=== PATIENT | male | born 1995 | race Caucasian/White ===

== ENCOUNTER 2018-04-17 22:32 | Inpatient (IN) | payer OTHER ==
[2018-04-17] MEDS: HYDROCODONE/APAP (5/325) TAB PO (23:45)
[2018-04-18] MEDS ORDERED: NACL 0.9% 3 ML SYG IV (02:00)
[2018-04-18] MEDS ORDERED: DOCUSATE SODIUM 100 MG CAP PO (02:00)
[2018-04-18] MEDS ORDERED: BISACODYL (EC) 5 MG TAB PO (02:00)
[2018-04-18] MEDS ORDERED: HYDROCODONE/APAP (5/325) TAB PO (02:00)
[2018-04-18 03:49] LABS: ADD MAN DIFF? NO
[2018-04-18 03:58] LABS: WHITE BLOOD COUNT 14.1 10^3/ul (4.8-10.8)
[2018-04-18 03:58] LABS: BASOPHIL # 0.1 10^3/ul (0.0-0.1); BASOPHILS % 0.6 % (0.0-2.0); EOSINOPHILS # 0.2 10^3/ul (0.0-0.5); EOSINOPHILS % 1.3 % (0.0-7.0); HEMATOCRIT 45.1 % (42.0-52.0); HEMOGLOBIN 15.7 g/dl (14.0-18.0); LYMPHOCYTES # 1.2 10^3/ul (0.8-2.9); LYMPHOCYTES % 8.5 % (15.0-51.0); MEAN CORPUSCULAR HEMOGLOBIN 31.2 pg (29.0-33.0); MEAN CORPUSCULAR HGB CONC 34.8 g/dl (32.0-37.0); MEAN CORPUSCULAR VOLUME 89.5 fl (82.0-101.0); MEAN PLATELET VOLUME 10.7 fl (7.4-10.4); MONOCYTE # 0.7 10^3/ul (0.3-0.9); MONOCYTES % 5.3 % (0.0-11.0); NEUTROPHIL # 11.7 10^3/ul (1.6-7.5); NEUTROPHILS % 83.2 % (39.0-77.0); PLATELET COUNT 219 10^3/UL (140-415); RED BLOOD COUNT 5.04 10^6/ul (4.70-6.10); RED CELL DISTRIBUTION WIDTH 12.2 % (11.5-14.5)
[2018-04-18 04:07] LABS: HEMOGLOBIN A1C 5.1 % (0-5.9)
[2018-04-18 04:16] LABS: ALANINE AMINOTRANSFERASE 62 IU/L (13-69); ALBUMIN 4.7 g/dl (3.3-4.9); ALBUMIN/GLOBULIN RATIO 1.56; ALKALINE PHOSPHATASE 54 IU/L (42-121); ANION GAP 15 (8-16); ASPARTATE AMINO TRANSFERASE 31 IU/L (15-46); BILIRUBIN,INDIRECT 0.2 mg/dl (0-1.1); BILIRUBIN,TOTAL 0.2 mg/dl (0.2-1.3); BLOOD UREA NITROGEN 9 mg/dl (7-20); CALCIUM 9.1 mg/dl (8.4-10.2); CARBON DIOXIDE 25 mmol/L (21-31); CHLORIDE 108 mmol/L (97-110); CREATININE 0.74 mg/dl (0.61-1.24); GLUCOSE 112 mg/dl (70-220); MAGNESIUM 2.3 mg/dl (1.7-2.5); POTASSIUM 4.3 mmol/L (3.5-5.1); SODIUM 144 mmol/L (135-144); TOTAL PROTEIN 7.7 g/dl (6.1-8.1)
[2018-04-18 04:17] LABS: INR 1.06; PROTIME 13.9 Sec (11.9-14.9); PT RATIO 1.1
[2018-04-18 04:18] LABS: PARTIAL THROMBOPLASTIN TIME 26.7 Sec (23.0-35.0)
[2018-04-18 04:57] LABS: THYROID STIMULATING HORMONE 0.927 MIU/L (0.465-4.680)
[2018-04-18] MEDS: HYDROCODONE/APAP (5/325) TAB PO ×2 (06:37→16:53)
[2018-04-18] MEDS: SOD CHLORIDE 0.9% 1,000 ML IV ×2 (06:37→19:26)
[2018-04-18] MEDS: HEPARIN 5,000 UNIT/0.5 ML VIAL SC ×3 (06:46→21:10)
[2018-04-19] MEDS: morphine 2 MG INJ IV ×2 (00:08→04:18)
[2018-04-19] MEDS: HEPARIN 5,000 UNIT/0.5 ML VIAL SC ×2 (05:58→07:34)
[2018-04-19] MEDS ORDERED: PROPOFOL 200 MG INJ (07:00)
[2018-04-19] MEDS: SOD CHLORIDE 0.9% 1,000 ML IV (07:14)
[2018-04-19] MEDS ORDERED: morphine SULFATE/PF (10 MG/10 ML) INJ (18:16)
[2018-04-19] MEDS ORDERED: METOCLOPRAMIDE 10 MG INJ (18:16)
[2018-04-19] MEDS ORDERED: MIDAZOLAM 1 MG/ML 2 ML INJ (18:16)
[2018-04-19] MEDS ORDERED: ROPIVACAINE 0.2% 20 ML VIAL (18:16)
[2018-04-19] MEDS ORDERED: BUPIVACAINE 0.75%/DEXT (SPINAL) 2 ML INJ (18:17)
[2018-04-19] MEDS ORDERED: FENTAnyl 50 MCG/ML VIAL (18:21)
[2018-04-19] MEDS ORDERED: KETOROLAC 30 MG INJ (18:53)
[2018-04-19] MEDS ORDERED: ONDANSETRON 4 MG INJ (18:53)
[2018-04-19] MEDS ORDERED: CEFAZOLIN 1 GM INJ (18:53)
[2018-04-19] MEDS: POLYMYXIN/BACITRACIN 1L IRRIG IRR (18:58)
[2018-04-19] MEDS ORDERED: HYDROmorphONE 1 MG/5 ML IV SYRINGE IV ×3 (19:30)
[2018-04-19] MEDS ORDERED: DIPHENHYDRAMINE 50 MG INJ IV (19:30)
[2018-04-19] MEDS ORDERED: MEPERIDINE 25 MG INJ IV (19:30)
[2018-04-19] MEDS ORDERED: LIDOCAINE 2% (SDV) 5 ML INJ (20:41)
[2018-04-19] MEDS: ONDANSETRON 4 MG INJ IV ×2 (22:11→23:52)
[2018-04-19] MEDS: D5W-0.45 NACL + KCL 20 MEQ 1,000 ML IV (22:29)
[2018-04-20] MEDS: CEFAZOLIN 1 GM/50 ML (PMX) 50 ML IVPB ×4 (02:00→17:15)
[2018-04-20 05:09] LABS: ADD MAN DIFF? NO
[2018-04-20 05:19] LABS: WHITE BLOOD COUNT 10.6 10^3/ul (4.8-10.8)
[2018-04-20 05:19] LABS: BASOPHIL # 0.1 10^3/ul (0.0-0.1); BASOPHILS % 0.5 % (0.0-2.0); EOSINOPHILS # 0.6 10^3/ul (0.0-0.5); EOSINOPHILS % 5.6 % (0.0-7.0); HEMATOCRIT 40.2 % (42.0-52.0); HEMOGLOBIN 13.7 g/dl (14.0-18.0); LYMPHOCYTES # 1.1 10^3/ul (0.8-2.9); LYMPHOCYTES % 10.1 % (15.0-51.0); MEAN CORPUSCULAR HEMOGLOBIN 31.1 pg (29.0-33.0); MEAN CORPUSCULAR HGB CONC 34.1 g/dl (32.0-37.0); MEAN CORPUSCULAR VOLUME 91.2 fl (82.0-101.0); MEAN PLATELET VOLUME 10.6 fl (7.4-10.4); MONOCYTE # 0.9 10^3/ul (0.3-0.9); MONOCYTES % 8.7 % (0.0-11.0); NEUTROPHIL # 7.9 10^3/ul (1.6-7.5); NEUTROPHILS % 74.5 % (39.0-77.0); PLATELET COUNT 173 10^3/UL (140-415); RED BLOOD COUNT 4.41 10^6/ul (4.70-6.10); RED CELL DISTRIBUTION WIDTH 11.9 % (11.5-14.5)
[2018-04-20] MEDS: morphine 2 MG INJ IV ×5 (05:48→21:12)
[2018-04-20 05:53] LABS: ALANINE AMINOTRANSFERASE 46 IU/L (13-69); ALBUMIN 3.3 g/dl (3.3-4.9); ALKALINE PHOSPHATASE 50 IU/L (42-121); ANION GAP 10 (8-16); ASPARTATE AMINO TRANSFERASE 25 IU/L (15-46); BILIRUBIN,INDIRECT 0.9 mg/dl (0-1.1); BILIRUBIN,TOTAL 0.9 mg/dl (0.2-1.3); BLOOD UREA NITROGEN 11 mg/dl (7-20); CALCIUM 9.1 mg/dl (8.4-10.2); CARBON DIOXIDE 28 mmol/L (21-31); CHLORIDE 104 mmol/L (97-110); CREATININE 0.74 mg/dl (0.61-1.24); GLUCOSE 103 mg/dl (70-220); POTASSIUM 4.7 mmol/L (3.5-5.1); SODIUM 137 mmol/L (135-144); TOTAL PROTEIN 6.3 g/dl (6.1-8.1)
[2018-04-20] MEDS: ACETAMINOPHEN 325 MG TAB PO ×2 (08:05→21:11)
[2018-04-20] MEDS: D5W-0.45 NACL + KCL 20 MEQ 1,000 ML IV ×3 (09:08→19:58)
[2018-04-20] MEDS: ENOXAPARIN 40 MG/0.4 ML SYG SC (09:09)
[2018-04-20] MEDS: HYDROCODONE/APAP (5/325) TAB PO ×3 (10:36→19:56)
[2018-04-21] MEDS: morphine 2 MG INJ IV ×4 (02:30→15:46)
[2018-04-21] MEDS: D5W-0.45 NACL + KCL 20 MEQ 1,000 ML IV ×3 (04:00→14:00)
[2018-04-21 05:50] LABS: ADD MAN DIFF? NO
[2018-04-21 05:54] LABS: WHITE BLOOD COUNT 8.8 10^3/ul (4.8-10.8)
[2018-04-21 05:54] LABS: BASOPHIL # 0.1 10^3/ul (0.0-0.1); BASOPHILS % 0.6 % (0.0-2.0); EOSINOPHILS # 0.4 10^3/ul (0.0-0.5); HEMOGLOBIN 13.8 g/dl (14.0-18.0); LYMPHOCYTES % 11.1 % (15.0-51.0); MEAN CORPUSCULAR HEMOGLOBIN 31.4 pg (29.0-33.0); MEAN CORPUSCULAR HGB CONC 34.5 g/dl (32.0-37.0); MEAN CORPUSCULAR VOLUME 90.9 fl (82.0-101.0); MEAN PLATELET VOLUME 10.8 fl (7.4-10.4); MONOCYTE # 0.7 10^3/ul (0.3-0.9); MONOCYTES % 7.9 % (0.0-11.0); NEUTROPHIL # 6.6 10^3/ul (1.6-7.5); NEUTROPHILS % 74.8 % (39.0-77.0); PLATELET COUNT 159 10^3/UL (140-415); RED CELL DISTRIBUTION WIDTH 11.9 % (11.5-14.5)
[2018-04-21 06:34] LABS: ALANINE AMINOTRANSFERASE 60 IU/L (13-69); ALBUMIN 3.4 g/dl (3.3-4.9); ALKALINE PHOSPHATASE 64 IU/L (42-121); ANION GAP 11 (8-16); ASPARTATE AMINO TRANSFERASE 42 IU/L (15-46); BLOOD UREA NITROGEN 5 mg/dl (7-20); CALCIUM 9.2 mg/dl (8.4-10.2); CARBON DIOXIDE 30 mmol/L (21-31); CHLORIDE 100 mmol/L (97-110); CREATININE 0.78 mg/dl (0.61-1.24); GLUCOSE 106 mg/dl (70-220); POTASSIUM 4.2 mmol/L (3.5-5.1); SODIUM 137 mmol/L (135-144); TOTAL PROTEIN 6.8 g/dl (6.1-8.1)
[2018-04-21] MEDS: ENOXAPARIN 40 MG/0.4 ML SYG SC (09:02)
[2018-04-21] MEDS: ACETAMINOPHEN 325 MG TAB PO (09:02)
[2018-04-21] MEDS: HYDROCODONE/APAP (5/325) TAB PO ×2 (10:10→13:53)
== END 2018-04-21 17:45 | disposition home or self-care (01) | DRG 494 ==
LOC: FTE 22:32 → 2NE 04-18 01:17
PROC: 0QSJ04Z Reposition Right Fibula with Internal Fixation Device, Open Approach (ICD-10-PCS; principal; 2018-04-19 18:14)
PROC: 0QSG04Z Reposition Right Tibia with Internal Fixation Device, Open Approach (ICD-10-PCS; 2018-04-19 18:14)
PROC: 0QSG04Z Reposition Right Tibia with Internal Fixation Device, Open Approach (ICD-10-PCS; 2018-04-19 18:14)
DX: S82.851A Displaced trimalleolar fracture of right lower leg, initial encounter for closed fracture (principal); W50.2XXA Accidental twist by another person, initial encounter; Y93.01 Activity, walking, marching and hiking; Y92.89 Other specified places as the place of occurrence of the external cause; Y99.8 Other external cause status
CPT/HCPCS: 71045; 73600; 73610-RT; 80053; 83036; 83735; 84443; 85025; 85610; 85730; 87086; 93005; 97116; 97161; 99285-25